=== PATIENT | male | born 1970 | race Caucasian/White ===

== ENCOUNTER 2021-12-22 12:51 | Inpatient (IN) ==
[2021-12-22] MEDS ORDERED: 0.9 % Sodium Chloride 1,000 ML IVC ONE (13:44)
[2021-12-22] MEDS ORDERED: Isovue-370 500 ML BOTTLE IVP ONE (13:45)
[2021-12-22] MEDS ORDERED: Cefepime HCl 2,000 MG in 0.9 % Sodium Chloride 10 ML IVP ONE (13:51)
[2021-12-22 14:26] LABS: INR 1.8; Prothrombin Time 19.7 Seconds (9.4-12.1)
[2021-12-22 14:28] LABS: Basophils % 0.1 %; Eosinophils % 0.2 %; Hematocrit 21.1 % (37.5-50.1); Hemoglobin 6.4 g/dL (12.9-16.9); Immature Granulocytes % 1.4 % (0-4); Lymphocytes # 0.8 K/mcL (0.6-4.6); Lymphocytes % 5.1 %; Mean Corpuscular HGB Conc 30.3 g/dL (31.6-35.5); Mean Corpuscular Hemoglobin 19.4 pg (28.0-33.3); Mean Corpuscular Volume 63.9 fL (83.0-100.0); Mean Platelet Volume 10.2 fL (9.4-12.4); Monocytes % 6.3 %; Platelet Count 203 K/mcL (140-400); Red Cell Distribution Width 18.4 % (11.5-14.5); Segmented Neutrophils % 86.9 %
[2021-12-22 14:39] LABS: Alanine Aminotransferase 7 Units/L (7-52); Albumin 2.9 g/dL (3.5-5.7); Albumin/Globulin Ratio 0.8 (1.1-2.2); Alkaline Phosphatase 113 Units/L (34-104); Aspartate Amino Transferase 18 Units/L (13-39); BUN/Creatinine Ratio 21 (6-26); Bilirubin,Direct 0.1 mg/dL (0.0-0.2); Bilirubin,Indirect 0.5 mg/dL (0.0-1.0); Bilirubin,Total 0.6 mg/dL (0.3-1.0); Blood Urea Nitrogen 16 mg/dL (6-20); Calcium 8.6 mg/dL (8.6-10.3); Carbon Dioxide 25 mEq/L (23-29); Chloride 99 mEq/L (98-107); Globulin 3.8 g/dL (2.4-3.5); Glucose 121 mg/dL (70-105); Osmolality,Calculated 278 (280-300); Potassium 3.4 mEq/L (3.5-5.1); Sodium 133 mEq/L (136-145); Total Protein 6.7 g/dL (6.4-8.9); eGFR For African Americans > 60 (> 60); eGFR For Non-African Americans > 60 (> 60)
[2021-12-22 14:51] LABS: Troponin I 1.46 ng/mL (< 0.04)
[2021-12-22] MEDS ORDERED: *HR* Heparin 5,000 UNIT/ML VIAL IVP ONE (14:51)
[2021-12-22] MEDS ORDERED: *HR* Heparin 5,000 UNIT/ML VIAL IVP PRN (14:51)
[2021-12-22 15:00] LABS: Large Platelets Present (Not Present); Platelet Estimate Normal (Normal)
[2021-12-22 15:01] LABS: Anisocytosis 1+ (Not Present); Microcytosis Present (Not Present)
[2021-12-22] MEDS: Heparin 25,000UNIT/250ML 1/2NS 25,000 UNIT/250 ML IV.SOLN IVC SCH (15:10)
[2021-12-22] MEDS ORDERED: Perflutren Lipid Microsphere 1.3 ML in 0.9 % Sodium Chloride 8.7 ML IVP PRN (17:06)
[2021-12-22] MEDS ORDERED: Ondansetron ODT 4 MG TAB.RAPDIS SL PRN (18:36)
[2021-12-22] MEDS ORDERED: Naloxone 0.4 MG/ML INJ IVP PRN (18:36)
[2021-12-22] MEDS ORDERED: levoFLOXacin 750 MG/150 ML 750 MG/150 ML BAG IVPB SCH (18:45)
[2021-12-22] MEDS ORDERED: Ringers Solution, Lactated 1,000 ML IVC SCH (18:45)
[2021-12-22] MEDS ORDERED: Vancomycin 1,250 MG/262.5 ML IV.SOLN IVPB SCH (19:00)
[2021-12-22] MEDS: Cefepime HCl 2,000 MG in 0.9 % Sodium Chloride 10 ML IVP SCH (20:47)
[2021-12-22] MEDS: Vancomycin 1,500 MG/265 ML IV.SOLN IVPB SCH (20:48)
[2021-12-22 21:34] LABS: Amphetamine Screen,Urine Positive ng/mL (Cutoff=1000); Barbiturate Screen,Urine Negative ng/mL (Cutoff=200); Benzodiazepines Screen,Urine Positive ng/mL (Cutoff=200); Cannabinoid Screen,Urine Negative ng/mL (Cutoff = 50); Cocaine Screen,Urine Negative ng/mL (Cutoff= 300); Opiate Screen,Urine Negative ng/mL (Cutoff=300); Phencyclidine Screen,Urine Negative ng/mL (Cutoff=25)
[2021-12-22] MEDS: levoFLOXacin 750 MG/150 ML 750 MG/150 ML BAG IVPB SCH (22:53)
[2021-12-22 23:36] LABS: Basophils % 0.1 %; Eosinophils % 0.2 %; Hematocrit 22.3 % (37.5-50.1); Hemoglobin 6.9 g/dL (12.9-16.9); Immature Granulocytes % 1.6 % (0-4); Lymphocytes # 0.7 K/mcL (0.6-4.6); Lymphocytes % 4.1 %; Mean Corpuscular HGB Conc 30.9 g/dL (31.6-35.5); Mean Corpuscular Hemoglobin 20.1 pg (28.0-33.3); Mean Corpuscular Volume 64.8 fL (83.0-100.0); Mean Platelet Volume 10.5 fL (9.4-12.4); Monocytes % 5.6 %; Platelet Count 203 K/mcL (140-400); Red Blood Count 3.44 M/mcL (4.19-5.50); Red Cell Distribution Width 19.8 % (11.5-14.5); Segmented Neutrophils % 88.4 %; White Blood Count 17.9 K/mcL (4.3-11.1)
[2021-12-22 23:46] LABS: Activated Partial Thrombo Time 31.9 Seconds (26.0-36.0)
[2021-12-22 23:49] LABS: Neutrophils # 15.8 K/mcL (1.6-8.9)
[2021-12-23 00:11] LABS: Heparin anti-factor XA UFH < 0.04 IU/mL (0.30-0.70)
[2021-12-23 00:20] LABS: Anisocytosis 1+ (Not Present); Hypochromasia Present (Not Present); Microcytosis Present (Not Present); Platelet Estimate Normal (Normal)
[2021-12-23] MEDS: *HR* Heparin 5,000 UNIT/ML VIAL IVP PRN ×2 (00:27→15:56)
[2021-12-23] MEDS ORDERED: 0.9 % Sodium Chloride 500 ML ONE (00:35)
[2021-12-23 01:10] LABS: Basophils % 0.1 %; Hemoglobin 6.7 g/dL (12.9-16.9); Mean Corpuscular Hemoglobin 19.8 pg (28.0-33.3); Monocytes % 4.8 %; Red Blood Count 3.39 M/mcL (4.19-5.50); Red Cell Distribution Width 19.9 % (11.5-14.5)
[2021-12-23 01:12] LABS: Eosinophils % 0.3 %; Hematocrit 22.1 % (37.5-50.1); Immature Granulocytes % 1.3 % (0-4); Immature Platelets 4.6 % (1.1-6.1); Lymphocytes # 0.7 K/mcL (0.6-4.6); Lymphocytes % 4.3 %; Mean Corpuscular HGB Conc 30.3 g/dL (31.6-35.5); Mean Corpuscular Volume 65.2 fL (83.0-100.0); Mean Platelet Volume 10.9 fL (9.4-12.4); Monocytes # 0.8 K/mcL (0.0-1.3); Platelet Count 189 K/mcL (140-400); Segmented Neutrophils % 89.2 %; White Blood Count 15.7 K/mcL (4.3-11.1)
[2021-12-23 01:15] LABS: Eosinophils # 0.1 K/mcL (0.0-0.6)
[2021-12-23 01:25] LABS: Alanine Aminotransferase 5 Units/L (7-52); Albumin 2.6 g/dL (3.5-5.7); Albumin/Globulin Ratio 0.7 (1.1-2.2); Alkaline Phosphatase 93 Units/L (34-104); Aspartate Amino Transferase 14 Units/L (13-39); BUN/Creatinine Ratio 18 (6-26); Bilirubin,Total 0.6 mg/dL (0.3-1.0); Blood Urea Nitrogen 13 mg/dL (6-20); Calcium 8.2 mg/dL (8.6-10.3); Carbon Dioxide 22 mEq/L (23-29); Chloride 103 mEq/L (98-107); Globulin 3.7 g/dL (2.4-3.5); Glucose 115 mg/dL (70-105); Osmolality,Calculated 279 (280-300); Potassium 3.1 mEq/L (3.5-5.1); Sodium 134 mEq/L (136-145); Total Protein 6.3 g/dL (6.4-8.9); eGFR For African Americans > 60 (> 60); eGFR For Non-African Americans > 60 (> 60)
[2021-12-23 01:56] LABS: Anisocytosis 1+ (Not Present); Hypochromasia Present (Not Present); Microcytosis Present (Not Present); Platelet Estimate Normal (Normal)
[2021-12-23] MEDS: *HR* LORazepam 2 MG/ML VIAL IVP PRN ×3 (03:39→20:44)
[2021-12-23] MEDS: Cefepime HCl 2,000 MG in 0.9 % Sodium Chloride 10 ML IVP SCH ×3 (06:20→22:43)
[2021-12-23] MEDS ORDERED: Potassium Chloride Elixir 20 MEQ/15 ML UDC PO ONE (08:23)
[2021-12-23] MEDS: Aspirin Enteric Coated 81 MG Tablet PO SCH (08:44)
[2021-12-23] MEDS: Heparin 25,000UNIT/250ML 1/2NS 25,000 UNIT/250 ML IV.SOLN IVC SCH ×2 (08:49→20:32)
[2021-12-23] MEDS: Vancomycin 1,500 MG/265 ML IV.SOLN IVPB SCH ×2 (10:14→19:50)
[2021-12-23 11:20] LABS: Hematocrit 24.8 % (37.5-50.1); Hemoglobin 7.7 g/dL (12.9-16.9)
[2021-12-23] MEDS: cloNIDine HCL 0.1 MG TABLET PO SCH ×4 (12:15→22:51)
[2021-12-23] MEDS: levoFLOXacin 750 MG/150 ML 750 MG/150 ML BAG IVPB SCH (20:45)
[2021-12-24] MEDS: *HR* Heparin 5,000 UNIT/ML VIAL IVP PRN ×2 (01:22→10:28)
[2021-12-24] MEDS: *HR* LORazepam 2 MG/ML VIAL IVP PRN ×2 (02:11→07:32)
[2021-12-24] MEDS ORDERED: *HR* LORazepam 2 MG/ML VIAL IVP ONE ×3 (04:32→11:24)
[2021-12-24] MEDS: Cefepime HCl 2,000 MG in 0.9 % Sodium Chloride 10 ML IVP SCH ×3 (05:34→20:58)
[2021-12-24] MEDS: Heparin 25,000UNIT/250ML 1/2NS 25,000 UNIT/250 ML IV.SOLN IVC SCH ×2 (07:59→18:39)
[2021-12-24 08:09] LABS: Hemoglobin 7.5 g/dL (12.9-16.9); Mean Corpuscular HGB Conc 31.3 g/dL (31.6-35.5); Mean Corpuscular Hemoglobin 20.8 pg (28.0-33.3); Mean Corpuscular Volume 66.7 fL (83.0-100.0); Mean Platelet Volume 10.9 fL (9.4-12.4); Platelet Count 255 K/mcL (140-400); Red Cell Distribution Width 21.1 % (11.5-14.5); White Blood Count 14.9 K/mcL (4.3-11.1)
[2021-12-24 08:28] LABS: ABG Base Excess 1 mEq/L (-2 to 3); ABG HCO3 23 mEq/L (21-27); ABG Oxygen Saturation 94 % (95-98); ABG PCO2 26 mmHg (35-45); ABG PH 7.55 pH Units (7.32-7.45); ABG PO2 59 mmHg (85-104); ABG TCO2 23 mEq/L (20-26)
[2021-12-24 08:30] LABS: BUN/Creatinine Ratio 13 (6-26); Blood Urea Nitrogen 9 mg/dL (6-20); Calcium 8.4 mg/dL (8.6-10.3); Carbon Dioxide 22 mEq/L (23-29); Chloride 106 mEq/L (98-107); Glucose 115 mg/dL (70-105); Iron 18 mcg/dL (65-175); Osmolality,Calculated 284 (280-300); Potassium 3.1 mEq/L (3.5-5.1); Sodium 137 mEq/L (136-145); eGFR For African Americans > 60 (> 60); eGFR For Non-African Americans > 60 (> 60)
[2021-12-24 08:48] LABS: Ferritin 161 ng/mL (20-250)
[2021-12-24] MEDS ORDERED: *HR* LORazepam 2 MG/ML VIAL IVP STA (09:15)
[2021-12-24 09:39] LABS: % Iron Saturation 8 % (20-55); Transferrin 160 mg/dL (203-362)
[2021-12-24] MEDS: Aspirin Enteric Coated 81 MG Tablet PO SCH (10:00)
[2021-12-24] MEDS: cloNIDine HCL 0.1 MG TABLET PO SCH (10:00)
[2021-12-24] MEDS ORDERED: Vancomycin 2,000 MG/520 ML IV.SOLN IVPB SCH ×2 (10:00→22:00)
[2021-12-24 10:19] LABS: Amphetamine Screen,Urine Negative ng/mL (Cutoff=1000); Barbiturate Screen,Urine Negative ng/mL (Cutoff=200); Benzodiazepines Screen,Urine Negative ng/mL (Cutoff=200); Cannabinoid Screen,Urine Negative ng/mL (Cutoff = 50); Cocaine Screen,Urine Negative ng/mL (Cutoff= 300); Opiate Screen,Urine Negative ng/mL (Cutoff=300); Phencyclidine Screen,Urine Negative ng/mL (Cutoff=25)
[2021-12-24] MEDS ORDERED: *HR* LORazepam 2 MG/ML VIAL IVP PRN (11:20)
[2021-12-24] MEDS ORDERED: *HR* Water for inj. (sterile) Vial 10 ML IV ONE (11:24)
[2021-12-24] MEDS ORDERED: *HR* Midazolam HCl 5 MG/5 ML VIAL IVP ONE (11:24)
[2021-12-24] MEDS ORDERED: *HR* Propofol 200 MG/20 ML VIAL IVP ONE (11:24)
[2021-12-24] MEDS ORDERED: *HR* Etomidate 20 MG/10 ML AMPUL IVP ONE (11:24)
[2021-12-24] MEDS ORDERED: Iron Sucrose Complex 200 MG in 0.9 % Sodium Chloride 100 ML IVPB ONE (11:32)
[2021-12-24] MEDS ORDERED: Furosemide 40 MG/4 ML VIAL IVP ONE (13:31)
[2021-12-24] MEDS: Dexmedetomidine HCl 400 MCG/100 ML MLS IVC SCH ×2 (14:11→20:37)
[2021-12-24] MEDS ORDERED: cloNIDine HCL 0.1 MG TABLET PO SCH (15:00)
[2021-12-24] MEDS ORDERED: Saline Nasal Spray 44 ML BOTTLE NS PRN (15:14)
[2021-12-24] MEDS ORDERED: Oxymetazoline Nasal SPRAY BOTTLE 15ML NS SCH (15:17)
[2021-12-24 16:53] LABS: ABG Base Excess 1 mEq/L (-2 to 3); ABG HCO3 23 mEq/L (21-27); ABG Oxygen Saturation 98 % (95-98); ABG PCO2 24 mmHg (35-45); ABG PH 7.58 pH Units (7.32-7.45); ABG PO2 91 mmHg (85-104); ABG TCO2 24 mEq/L (20-26); Blood Gas Modality BiLevel
[2021-12-24] MEDS: FentaNYL (PF) 1,000 MCG/100 ML IV.SOLN IVC SCH ×2 (17:31→21:01)
[2021-12-24] MEDS: Pantoprazole 40 MG VIAL IVP SCH (18:43)
[2021-12-24 18:48] LABS: ABG Base Excess 0 mEq/L (-2 to 3); ABG HCO3 23 mEq/L (21-27); ABG Oxygen Saturation 100 % (95-98); ABG PCO2 34 mmHg (35-45); ABG PH 7.45 pH Units (7.32-7.45); ABG PO2 170 mmHg (85-104); ABG TCO2 24 mEq/L (20-26); Blood Gas Modality ASSIST CONTROL; Blood Gas VT 500 cc
[2021-12-24] MEDS: Midazolam HCl 50 MG/50 ML IV.SOLN IVC SCH ×2 (19:11→20:54)
[2021-12-24] MEDS: Chlorhexidine Rinse 15 ML MOUTHWASH MM SCH (20:57)
[2021-12-24] MEDS: Artificial Tears SOLN 15 ML BOTTLE BOTH EYES SCH (20:57)
[2021-12-24] MEDS: levoFLOXacin 750 MG/150 ML 750 MG/150 ML BAG IVPB SCH (21:04)
[2021-12-24] MEDS: Norepinephrine 4 MG/254 ML IV.SOLN IVC SCH (21:06)
[2021-12-24] MEDS: Budesonide/Formoterol 160/4.5 1 PUFF INH IH SCH (21:33)
[2021-12-24] MEDS: Cisatracurium 200 MG in 0.9 % Sodium Chloride 80 ML IVC SCH (22:31)
[2021-12-25] MEDS: Artificial Tears SOLN 15 ML BOTTLE BOTH EYES SCH ×4 (00:10→12:12)
[2021-12-25] MEDS: Dexmedetomidine HCl 400 MCG/100 ML MLS IVC SCH ×2 (00:24→04:59)
[2021-12-25 00:39] LABS: ABG Base Excess -1 mEq/L (-2 to 3); ABG HCO3 27 mEq/L (21-27); ABG Oxygen Saturation 99 % (95-98); ABG PCO2 56 mmHg (35-45); ABG PH 7.29 pH Units (7.32-7.45); ABG PO2 165 mmHg (85-104); ABG TCO2 28 mEq/L (20-26); Blood Gas Modality AF; Blood Gas VT 500 cc
[2021-12-25] MEDS: Norepinephrine 4 MG/254 ML IV.SOLN IVC SCH ×5 (00:45→19:45)
[2021-12-25] MEDS: FentaNYL (PF) 1,000 MCG/100 ML IV.SOLN IVC SCH ×6 (00:47→23:17)
[2021-12-25] MEDS: Midazolam HCl 50 MG/50 ML IV.SOLN IVC SCH ×5 (01:42→23:21)
[2021-12-25 04:01] LABS: ABG Base Excess -2 mEq/L (-2 to 3); ABG HCO3 26 mEq/L (21-27); ABG Oxygen Saturation 96 % (95-98); ABG PCO2 61 mmHg (35-45); ABG PH 7.24 pH Units (7.32-7.45); ABG PO2 96 mmHg (85-104); ABG TCO2 28 mEq/L (20-26); Blood Gas Modality AF; Blood Gas VT 500 cc
[2021-12-25 04:12] LABS: Basophils # 0.1 K/mcL (0.0-0.2); Basophils % 0.3 %; Eosinophils # 0.4 K/mcL (0.0-0.6); Eosinophils % 1.9 %; Hematocrit 26.7 % (37.5-50.1); Hemoglobin 7.9 g/dL (12.9-16.9); Immature Granulocytes % 2.6 % (0-4); Lymphocytes # 1.8 K/mcL (0.6-4.6); Lymphocytes % 8.4 %; Mean Corpuscular HGB Conc 29.6 g/dL (31.6-35.5); Mean Corpuscular Hemoglobin 21.1 pg (28.0-33.3); Mean Corpuscular Volume 71.4 fL (83.0-100.0); Mean Platelet Volume 10.4 fL (9.4-12.4); Monocytes # 1.9 K/mcL (0.0-1.3); Neutrophils # 16.8 K/mcL (1.6-8.9); Platelet Count 323 K/mcL (140-400); Red Blood Count 3.74 M/mcL (4.19-5.50); Red Cell Distribution Width 21.6 % (11.5-14.5); Segmented Neutrophils % 77.8 %; White Blood Count 21.6 K/mcL (4.3-11.1)
[2021-12-25 04:21] LABS: VBG Ionized Calcium 1.17 mmol/L (1.15-1.35)
[2021-12-25 04:48] LABS: Alanine Aminotransferase 5 Units/L (7-52); Albumin 2.8 g/dL (3.5-5.7); Albumin/Globulin Ratio 0.7 (1.1-2.2); Alkaline Phosphatase 86 Units/L (34-104); Aspartate Amino Transferase 8 Units/L (13-39); BUN/Creatinine Ratio 13 (6-26); Bilirubin,Indirect 0.4 mg/dL (0.0-1.0); Bilirubin,Total 0.4 mg/dL (0.3-1.0); Blood Urea Nitrogen 14 mg/dL (6-20); Calcium 8.1 mg/dL (8.6-10.3); Carbon Dioxide 24 mEq/L (23-29); Chloride 107 mEq/L (98-107); Glucose 145 mg/dL (70-105); Magnesium 2.1 mg/dL (1.6-2.6); Osmolality,Calculated 295 (280-300); Phosphorous 6.2 mg/dL (2.7-4.5); Potassium 3.2 mEq/L (3.5-5.1); Sodium 141 mEq/L (136-145); Total Protein 6.8 g/dL (6.4-8.9); eGFR For African Americans > 60 (> 60); eGFR For Non-African Americans > 60 (> 60)
[2021-12-25] MEDS: Cefepime HCl 2,000 MG in 0.9 % Sodium Chloride 10 ML IVP SCH ×3 (05:01→21:21)
[2021-12-25] MEDS: Heparin 25,000UNIT/250ML 1/2NS 25,000 UNIT/250 ML IV.SOLN IVC SCH ×2 (05:31→20:03)
[2021-12-25] MEDS: Potassium Chloride 40 MEQ/200 ML BAG IVPB PRN ×2 (05:38→06:46)
[2021-12-25] MEDS: Budesonide/Formoterol 160/4.5 1 PUFF INH IH SCH ×2 (07:56→19:44)
[2021-12-25] MEDS: Pantoprazole 40 MG VIAL IVP SCH (08:55)
[2021-12-25] MEDS: Chlorhexidine Rinse 15 ML MOUTHWASH MM SCH ×2 (08:55→21:20)
[2021-12-25] MEDS: Aspirin Enteric Coated 81 MG Tablet PO SCH (08:55)
[2021-12-25] MEDS: Lacri-Lube 3.5 GM TUBE BOTH EYES SCH ×2 (12:10→21:00)
[2021-12-25] MEDS: Cisatracurium 200 MG in 0.9 % Sodium Chloride 80 ML IVC SCH (13:51)
[2021-12-25 14:27] LABS: Monocytes % 6.1 %
[2021-12-25 14:29] LABS: Basophils % 0.2 %; Eosinophils # 0.4 K/mcL (0.0-0.6); Eosinophils % 2.1 %; Hematocrit 27.7 % (37.5-50.1); Hemoglobin 8.2 g/dL (12.9-16.9); Immature Granulocytes % 1.8 % (0-4); Lymphocytes # 0.9 K/mcL (0.6-4.6); Lymphocytes % 4.7 %; Mean Corpuscular HGB Conc 29.6 g/dL (31.6-35.5); Mean Corpuscular Volume 70.8 fL (83.0-100.0); Mean Platelet Volume 9.9 fL (9.4-12.4); Monocytes # 1.2 K/mcL (0.0-1.3); Neutrophils # 16.3 K/mcL (1.6-8.9); Platelet Count 279 K/mcL (140-400); Red Blood Count 3.91 M/mcL (4.19-5.50); Red Cell Distribution Width 21.8 % (11.5-14.5); Segmented Neutrophils % 85.1 %; White Blood Count 19.2 K/mcL (4.3-11.1)
[2021-12-25 14:46] LABS: Alanine Aminotransferase 5 Units/L (7-52); Albumin 2.8 g/dL (3.5-5.7); Albumin/Globulin Ratio 0.7 (1.1-2.2); Alkaline Phosphatase 80 Units/L (34-104); Aspartate Amino Transferase 7 Units/L (13-39); BUN/Creatinine Ratio 15 (6-26); Bilirubin,Total 0.5 mg/dL (0.3-1.0); Blood Urea Nitrogen 20 mg/dL (6-20); Calcium 8.7 mg/dL (8.6-10.3); Carbon Dioxide 25 mEq/L (23-29); Chloride 108 mEq/L (98-107); Globulin 4.1 g/dL (2.4-3.5); Glucose 121 mg/dL (70-105); Osmolality,Calculated 296 (280-300); Potassium 3.8 mEq/L (3.5-5.1); Sodium 141 mEq/L (136-145); Total Protein 6.9 g/dL (6.4-8.9); eGFR For African Americans > 60 (> 60); eGFR For Non-African Americans 56 (> 60)
[2021-12-25 19:04] LABS: Bacteria,Urine Moderate per hpf (None-Few); Bilirubin,Urine Negative (Negative); Blood,Urine Moderate (Negative); Clarity,Urine Ex.Turbid (Clear); Color,Urine Yellow (Yellow); Glucose,Urine (UA) Normal (Normal); Hyaline Casts,Urine Many per lpf (None Seen); Ketones,Urine Negative (Negative); Leukocyte Esterase,Urine Small (Negative); Mucus,Urine Few per lpf (None-Few); Nitrite,Urine Negative (Negative); PH,Urine 5.5 pH Units (5.0-8.0); Protein,Urine 100 mg/dL (Neg-Trace); RBC,Urine 15-30 per hpf (0-3); Squamous Epithelial Cell,Urine Few per hpf (None-Few); Urobilinogen,Urine Normal (Normal); WBC,Urine 15-30 per hpf (0-3)
[2021-12-25 20:35] LABS: HIV-1&2 Antibody & p24 Ag Nonreactive (Nonreactive)
[2021-12-25] MEDS: levoFLOXacin 750 MG/150 ML 750 MG/150 ML BAG IVPB SCH (21:22)
[2021-12-25 23:51] LABS: ABG Base Excess -4 mEq/L (-2 to 3); ABG HCO3 23 mEq/L (21-27); ABG Oxygen Saturation 95 % (95-98); ABG PCO2 51 mmHg (35-45); ABG PH 7.26 pH Units (7.32-7.45); ABG PO2 87 mmHg (85-104); ABG TCO2 25 mEq/L (20-26); Blood Gas Modality ASSIST CONTROL; Blood Gas VT 500 cc
[2021-12-26 01:55] LABS: Hepatitis C Virus Antibody Reactive (Nonreactive)
[2021-12-26] MEDS: FentaNYL (PF) 1,000 MCG/100 ML IV.SOLN IVC SCH ×5 (03:52→22:33)
[2021-12-26] MEDS: Midazolam HCl 50 MG/50 ML IV.SOLN IVC SCH ×4 (04:08→21:05)
[2021-12-26 04:17] LABS: ABG Base Excess -4 mEq/L (-2 to 3); ABG HCO3 22 mEq/L (21-27); ABG Oxygen Saturation 97 % (95-98); ABG PCO2 47 mmHg (35-45); ABG PH 7.29 pH Units (7.32-7.45); ABG PO2 106 mmHg (85-104); ABG TCO2 24 mEq/L (20-26); Blood Gas Modality ASSIST CONTROL; Blood Gas VT 500 cc
[2021-12-26] MEDS: Heparin 25,000UNIT/250ML 1/2NS 25,000 UNIT/250 ML IV.SOLN IVC SCH ×2 (05:06→15:01)
[2021-12-26 05:18] LABS: Basophils % 0.1 %; Eosinophils % 1.9 %; Platelet Count 248 K/mcL (140-400)
[2021-12-26 05:18] LABS: VBG Ionized Calcium 1.22 mmol/L (1.15-1.35)
[2021-12-26 05:19] LABS: Eosinophils # 0.3 K/mcL (0.0-0.6); Hematocrit 27.9 % (37.5-50.1); Hemoglobin 8.1 g/dL (12.9-16.9); Immature Granulocytes % 1.5 % (0-4); Lymphocytes # 0.6 K/mcL (0.6-4.6); Lymphocytes % 3.8 %; Mean Corpuscular Hemoglobin 21.1 pg (28.0-33.3); Mean Corpuscular Volume 72.7 fL (83.0-100.0); Mean Platelet Volume 10.5 fL (9.4-12.4); Monocytes # 0.7 K/mcL (0.0-1.3); Monocytes % 4.7 %; Red Blood Count 3.84 M/mcL (4.19-5.50); Red Cell Distribution Width 22.5 % (11.5-14.5); White Blood Count 14.6 K/mcL (4.3-11.1)
[2021-12-26 05:23] LABS: Neutrophils # 12.9 K/mcL (1.6-8.9)
[2021-12-26 05:36] LABS: Alanine Aminotransferase 6 Units/L (7-52); Albumin 2.7 g/dL (3.5-5.7); Albumin/Globulin Ratio 0.7 (1.1-2.2); Alkaline Phosphatase 81 Units/L (34-104); Aspartate Amino Transferase 8 Units/L (13-39); BUN/Creatinine Ratio 17 (6-26); Bilirubin,Direct 0.1 mg/dL (0.0-0.2); Bilirubin,Indirect 0.3 mg/dL (0.0-1.0); Bilirubin,Total 0.4 mg/dL (0.3-1.0); Blood Urea Nitrogen 19 mg/dL (6-20); Calcium 8.7 mg/dL (8.6-10.3); Carbon Dioxide 22 mEq/L (23-29); Chloride 108 mEq/L (98-107); Globulin 4.1 g/dL (2.4-3.5); Glucose 107 mg/dL (70-105); Magnesium 2.1 mg/dL (1.6-2.6); Osmolality,Calculated 291 (280-300); Phosphorous 5.3 mg/dL (2.7-4.5); Sodium 139 mEq/L (136-145); Total Protein 6.8 g/dL (6.4-8.9); eGFR For African Americans > 60 (> 60); eGFR For Non-African Americans > 60 (> 60)
[2021-12-26] MEDS: Cefepime HCl 2,000 MG in 0.9 % Sodium Chloride 10 ML IVP SCH ×3 (05:42→21:38)
[2021-12-26 05:44] LABS: INR 1.3
[2021-12-26 05:51] LABS: Activated Partial Thrombo Time 71.9 Seconds (26.0-36.0)
[2021-12-26] MEDS: Budesonide/Formoterol 160/4.5 1 PUFF INH IH SCH ×2 (07:46→19:42)
[2021-12-26] MEDS: Chlorhexidine Rinse 15 ML MOUTHWASH MM SCH ×2 (08:42→21:06)
[2021-12-26] MEDS: Pantoprazole 40 MG VIAL IVP SCH (08:42)
[2021-12-26] MEDS: Lacri-Lube 3.5 GM TUBE BOTH EYES SCH ×2 (08:42→21:08)
[2021-12-26] MEDS: Aspirin Enteric Coated 81 MG Tablet PO SCH (08:42)
[2021-12-26] MEDS: Aspirin 81 MG TAB.CHEW PO SCH (12:14)
[2021-12-26] MEDS: Cisatracurium 200 MG in 0.9 % Sodium Chloride 80 ML IVC SCH (20:31)
[2021-12-26] MEDS: levoFLOXacin 750 MG/150 ML 750 MG/150 ML BAG IVPB SCH (21:06)
[2021-12-26] MEDS: Artificial Tears SOLN 15 ML BOTTLE BOTH EYES PRN (21:08)
[2021-12-27] MEDS: Heparin 25,000UNIT/250ML 1/2NS 25,000 UNIT/250 ML IV.SOLN IVC SCH ×3 (00:27→18:26)
[2021-12-27] MEDS: Midazolam HCl 50 MG/50 ML IV.SOLN IVC SCH ×6 (01:07→23:26)
[2021-12-27] MEDS: FentaNYL (PF) 1,000 MCG/100 ML IV.SOLN IVC SCH ×5 (03:15→21:11)
[2021-12-27 03:39] LABS: ABG Base Excess -4 mEq/L (-2 to 3); ABG HCO3 22 mEq/L (21-27); ABG Oxygen Saturation 100 % (95-98); ABG PCO2 43 mmHg (35-45); ABG PH 7.32 pH Units (7.32-7.45); ABG PO2 180 mmHg (85-104); ABG TCO2 23 mEq/L (20-26); Blood Gas VT 500 cc
[2021-12-27 03:40] LABS: Eosinophils % 2.4 %; Monocytes % 5.3 %
[2021-12-27 03:40] LABS: VBG Ionized Calcium 1.22 mmol/L (1.15-1.35)
[2021-12-27 03:41] LABS: Basophils % 0.2 %; Eosinophils # 0.4 K/mcL (0.0-0.6); Hematocrit 26.7 % (37.5-50.1); Hemoglobin 7.5 g/dL (12.9-16.9); Immature Granulocytes % 1.5 % (0-4); Lymphocytes # 0.7 K/mcL (0.6-4.6); Lymphocytes % 4.9 %; Mean Corpuscular HGB Conc 28.1 g/dL (31.6-35.5); Mean Corpuscular Hemoglobin 20.3 pg (28.0-33.3); Mean Corpuscular Volume 72.4 fL (83.0-100.0); Monocytes # 0.8 K/mcL (0.0-1.3); Platelet Count 286 K/mcL (140-400); Red Blood Count 3.69 M/mcL (4.19-5.50); Red Cell Distribution Width 22.9 % (11.5-14.5); Segmented Neutrophils % 85.7 %
[2021-12-27 03:43] LABS: Neutrophils # 12.9 K/mcL (1.6-8.9)
[2021-12-27 03:58] LABS: Alanine Aminotransferase 5 Units/L (7-52); Albumin 2.8 g/dL (3.5-5.7); Albumin/Globulin Ratio 0.7 (1.1-2.2); Alkaline Phosphatase 77 Units/L (34-104); Aspartate Amino Transferase 9 Units/L (13-39); BUN/Creatinine Ratio 17 (6-26); Bilirubin,Direct 0.1 mg/dL (0.0-0.2); Bilirubin,Indirect 0.3 mg/dL (0.0-1.0); Bilirubin,Total 0.4 mg/dL (0.3-1.0); Blood Urea Nitrogen 23 mg/dL (6-20); Calcium 8.8 mg/dL (8.6-10.3); Carbon Dioxide 21 mEq/L (23-29); Chloride 109 mEq/L (98-107); Globulin 4.2 g/dL (2.4-3.5); Glucose 106 mg/dL (70-105); Magnesium 2.2 mg/dL (1.6-2.6); Osmolality,Calculated 292 (280-300); Potassium 3.9 mEq/L (3.5-5.1); Sodium 139 mEq/L (136-145); eGFR For African Americans > 60 (> 60); eGFR For Non-African Americans 56 (> 60)
[2021-12-27 04:30] LABS: Hypochromasia Present (Not Present)
[2021-12-27 04:31] LABS: Anisocytosis 3+ (Not Present); Platelet Estimate Normal (Normal)
[2021-12-27] MEDS: Potassium Chloride 40 MEQ/200 ML BAG IVPB PRN (05:14)
[2021-12-27] MEDS: Cefepime HCl 2,000 MG in 0.9 % Sodium Chloride 10 ML IVP SCH ×3 (06:06→20:56)
[2021-12-27] MEDS: Budesonide/Formoterol 160/4.5 1 PUFF INH IH SCH ×2 (07:13→19:31)
[2021-12-27] MEDS ORDERED: Furosemide 40 MG/4 ML VIAL IVP ONE (08:37)
[2021-12-27] MEDS: Pantoprazole 40 MG VIAL IVP SCH (08:51)
[2021-12-27] MEDS: Lacri-Lube 3.5 GM TUBE BOTH EYES SCH ×2 (08:52→20:59)
[2021-12-27] MEDS: Chlorhexidine Rinse 15 ML MOUTHWASH MM SCH ×2 (08:52→20:56)
[2021-12-27] MEDS: Aspirin 81 MG TAB.CHEW PO SCH (08:52)
[2021-12-27] MEDS: Artificial Tears SOLN 15 ML BOTTLE BOTH EYES PRN (16:03)
[2021-12-27 17:00] LABS: VBG Ionized Calcium 1.29 mmol/L (1.15-1.35)
[2021-12-27 17:08] LABS: Calcium 9.1 mg/dL (8.6-10.3); Magnesium 2.3 mg/dL (1.6-2.6); Phosphorous 5.8 mg/dL (2.7-4.5); Potassium 4.6 mEq/L (3.5-5.1)
[2021-12-27] MEDS: Cisatracurium 200 MG in 0.9 % Sodium Chloride 80 ML IVC SCH (20:31)
[2021-12-27] MEDS: levoFLOXacin 750 MG/150 ML 750 MG/150 ML BAG IVPB SCH (20:56)
[2021-12-28] MEDS: FentaNYL (PF) 1,000 MCG/100 ML IV.SOLN IVC SCH ×5 (02:00→20:52)
[2021-12-28] MEDS: Midazolam HCl 50 MG/50 ML IV.SOLN IVC SCH ×2 (03:00→06:51)
[2021-12-28 03:36] LABS: Hemoglobin 7.3 g/dL (12.9-16.9); Mean Corpuscular Hemoglobin 20.9 pg (28.0-33.3); Red Cell Distribution Width 23.3 % (11.5-14.5); Segmented Neutrophils % 83.9 %
[2021-12-28 03:38] LABS: Basophils % 0.3 %; Eosinophils # 0.2 K/mcL (0.0-0.6); Eosinophils % 1.7 %; Hematocrit 25.4 % (37.5-50.1); Immature Granulocytes % 2.2 % (0-4); Lymphocytes # 0.9 K/mcL (0.6-4.6); Lymphocytes % 6.2 %; Mean Corpuscular HGB Conc 28.7 g/dL (31.6-35.5); Mean Corpuscular Volume 72.6 fL (83.0-100.0); Mean Platelet Volume 10.2 fL (9.4-12.4); Monocytes # 0.8 K/mcL (0.0-1.3); Monocytes % 5.7 %; Neutrophils # 11.8 K/mcL (1.6-8.9); Platelet Count 314 K/mcL (140-400); White Blood Count 14.1 K/mcL (4.3-11.1)
[2021-12-28 03:54] LABS: VBG Ionized Calcium 1.29 mmol/L (1.15-1.35)
[2021-12-28 03:56] LABS: Albumin 2.8 g/dL (3.5-5.7); Albumin/Globulin Ratio 0.7 (1.1-2.2); Bilirubin,Direct 0.1 mg/dL (0.0-0.2); Bilirubin,Indirect 0.3 mg/dL (0.0-1.0); Bilirubin,Total 0.4 mg/dL (0.3-1.0); Calcium 9.1 mg/dL (8.6-10.3); Globulin 4.2 g/dL (2.4-3.5); Magnesium 2.3 mg/dL (1.6-2.6); Phosphorous 5.5 mg/dL (2.7-4.5); Potassium 4.5 mEq/L (3.5-5.1)
[2021-12-28] MEDS: Heparin 25,000UNIT/250ML 1/2NS 25,000 UNIT/250 ML IV.SOLN IVC SCH ×2 (03:56→18:50)
[2021-12-28 03:58] LABS: Anisocytosis 3+ (Not Present); Hypochromasia Present (Not Present); Microcytosis Present (Not Present); Platelet Estimate Normal (Normal); Poikilocytosis 1+ (Not Present)
[2021-12-28 04:10] LABS: ABG Base Excess -6 mEq/L (-2 to 3); ABG HCO3 20 mEq/L (21-27); ABG Oxygen Saturation 99 % (95-98); ABG PCO2 42 mmHg (35-45); ABG PO2 167 mmHg (85-104); ABG TCO2 22 mEq/L (20-26); Blood Gas Modality ASSIST CONTROL; Blood Gas VT 500 cc
[2021-12-28] MEDS: Cefepime HCl 2,000 MG in 0.9 % Sodium Chloride 10 ML IVP SCH ×3 (04:46→20:51)
[2021-12-28] MEDS: Budesonide/Formoterol 160/4.5 1 PUFF INH IH SCH ×2 (07:55→21:29)
[2021-12-28] MEDS: Pantoprazole 40 MG VIAL IVP SCH ×2 (08:17→18:05)
[2021-12-28] MEDS: Chlorhexidine Rinse 15 ML MOUTHWASH MM SCH ×2 (08:17→19:52)
[2021-12-28] MEDS: Norepinephrine 4 MG/254 ML IV.SOLN IVC SCH ×2 (08:17→19:40)
[2021-12-28] MEDS: Aspirin 81 MG TAB.CHEW PO SCH (08:18)
[2021-12-28] MEDS: Lacri-Lube 3.5 GM TUBE BOTH EYES SCH ×2 (08:18→19:52)
[2021-12-28] MEDS: Dexmedetomidine HCl 400 MCG/100 ML MLS IVC SCH ×2 (08:21→13:00)
[2021-12-28 09:43] LABS: Basophils % 0.2 %; Eosinophils # 0.3 K/mcL (0.0-0.6); Hematocrit 24.8 % (37.5-50.1); Hemoglobin 7.2 g/dL (12.9-16.9); Immature Granulocytes % 1.9 % (0-4); Lymphocytes # 0.8 K/mcL (0.6-4.6); Lymphocytes % 6.6 %; Mean Corpuscular Hemoglobin 21.2 pg (28.0-33.3); Mean Corpuscular Volume 72.9 fL (83.0-100.0); Mean Platelet Volume 10.3 fL (9.4-12.4); Monocytes # 0.8 K/mcL (0.0-1.3); Monocytes % 6.7 %; Neutrophils # 10.2 K/mcL (1.6-8.9); Platelet Count 301 K/mcL (140-400); Red Cell Distribution Width 23.5 % (11.5-14.5); Segmented Neutrophils % 82.6 %; White Blood Count 12.3 K/mcL (4.3-11.1)
[2021-12-28 11:17] LABS: Anisocytosis 1+ (Not Present); Hypochromasia Present (Not Present); Platelet Estimate Normal (Normal)
[2021-12-28 11:19] LABS: Poikilocytosis 1+ (Not Present)
[2021-12-28] MEDS: Artificial Tears SOLN 15 ML BOTTLE BOTH EYES PRN (11:54)
[2021-12-28 14:57] LABS: Mean Corpuscular Volume 72.6 fL (83.0-100.0)
[2021-12-28 14:58] LABS: Eosinophils # 0.3 K/mcL (0.0-0.6); Hematocrit 24.4 % (37.5-50.1); Hemoglobin 7.1 g/dL (12.9-16.9); Mean Corpuscular HGB Conc 29.1 g/dL (31.6-35.5); Mean Corpuscular Hemoglobin 21.1 pg (28.0-33.3); Platelet Count 285 K/mcL (140-400); Red Blood Count 3.36 M/mcL (4.19-5.50); Red Cell Distribution Width 23.7 % (11.5-14.5); White Blood Count 12.5 K/mcL (4.3-11.1)
[2021-12-28 15:37] LABS: Anisocytosis 2+ (Not Present); Lymphocytes # 0.5 K/mcL (0.6-4.6); Monocytes # 0.3 K/mcL (0.0-1.3); Neutrophils # 11.5 K/mcL (1.6-8.9); Platelet Estimate Normal (Normal)
[2021-12-28 15:38] LABS: Poikilocytosis 1+ (Not Present)
[2021-12-28] MEDS: Cisatracurium 200 MG in 0.9 % Sodium Chloride 80 ML IVC SCH (19:40)
[2021-12-28] MEDS: levoFLOXacin 750 MG/150 ML 750 MG/150 ML BAG IVPB SCH (19:52)
[2021-12-28 20:20] LABS: Hematocrit 25.2 % (37.5-50.1); Hemoglobin 7.1 g/dL (12.9-16.9)
[2021-12-29] MEDS: FentaNYL (PF) 1,000 MCG/100 ML IV.SOLN IVC SCH ×6 (00:53→21:13)
[2021-12-29 03:19] LABS: VBG Ionized Calcium 1.28 mmol/L (1.15-1.35)
[2021-12-29 03:23] LABS: Segmented Neutrophils % 83.3 %
[2021-12-29 03:25] LABS: Basophils % 0.2 %; Eosinophils # 0.2 K/mcL (0.0-0.6); Eosinophils % 1.8 %; Hematocrit 24.9 % (37.5-50.1); Immature Granulocytes % 2.3 % (0-4); Lymphocytes # 0.9 K/mcL (0.6-4.6); Lymphocytes % 6.9 %; Mean Corpuscular HGB Conc 28.1 g/dL (31.6-35.5); Mean Corpuscular Hemoglobin 20.8 pg (28.0-33.3); Mean Corpuscular Volume 73.9 fL (83.0-100.0); Mean Platelet Volume 10.5 fL (9.4-12.4); Monocytes # 0.7 K/mcL (0.0-1.3); Monocytes % 5.5 %; Platelet Count 292 K/mcL (140-400); Red Blood Count 3.37 M/mcL (4.19-5.50); Red Cell Distribution Width 23.9 % (11.5-14.5); White Blood Count 12.4 K/mcL (4.3-11.1)
[2021-12-29 03:28] LABS: Neutrophils # 10.3 K/mcL (1.6-8.9)
[2021-12-29 03:52] LABS: Albumin 2.8 g/dL (3.5-5.7); Albumin/Globulin Ratio 0.6 (1.1-2.2); Bilirubin,Direct 0.1 mg/dL (0.0-0.2); Bilirubin,Indirect 0.3 mg/dL (0.0-1.0); Bilirubin,Total 0.4 mg/dL (0.3-1.0); Globulin 4.4 g/dL (2.4-3.5); Magnesium 2.4 mg/dL (1.6-2.6); Phosphorous 5.7 mg/dL (2.7-4.5); Potassium 4.4 mEq/L (3.5-5.1); Total Protein 7.2 g/dL (6.4-8.9)
[2021-12-29 03:55] LABS: Anisocytosis 3+ (Not Present); Hypochromasia Present (Not Present); Platelet Estimate Normal (Normal)
[2021-12-29] MEDS: Heparin 25,000UNIT/250ML 1/2NS 25,000 UNIT/250 ML IV.SOLN IVC SCH ×3 (04:04→21:13)
[2021-12-29 05:09] LABS: ABG Base Excess -8 mEq/L (-2 to 3); ABG HCO3 18 mEq/L (21-27); ABG Oxygen Saturation 99 % (95-98); ABG PCO2 37 mmHg (35-45); ABG PO2 147 mmHg (85-104); ABG TCO2 19 mEq/L (20-26); Blood Gas Modality AF; Blood Gas VT 500 cc
[2021-12-29] MEDS: Cefepime HCl 2,000 MG in 0.9 % Sodium Chloride 10 ML IVP SCH ×3 (05:09→21:13)
[2021-12-29] MEDS: Pantoprazole 40 MG VIAL IVP SCH ×2 (05:10→17:19)
[2021-12-29] MEDS: Dexmedetomidine HCl 400 MCG/100 ML MLS IVC SCH ×3 (05:14→23:38)
[2021-12-29] MEDS: Lacri-Lube 3.5 GM TUBE BOTH EYES SCH ×2 (07:29→19:44)
[2021-12-29] MEDS: Chlorhexidine Rinse 15 ML MOUTHWASH MM SCH ×2 (07:29→19:43)
[2021-12-29] MEDS: Budesonide/Formoterol 160/4.5 1 PUFF INH IH SCH ×2 (07:42→21:26)
[2021-12-29] MEDS ORDERED: *HR* LORazepam 2 MG/ML VIAL IVP ONE (08:50)
[2021-12-29] MEDS: Albumin Human 5% 12.5 GM/250 ML IV.SOLN IVC SCH ×2 (09:01→13:29)
[2021-12-29] MEDS: Norepinephrine 4 MG/254 ML IV.SOLN IVC SCH (09:59)
[2021-12-29] MEDS: Cisatracurium 200 MG in 0.9 % Sodium Chloride 80 ML IVC SCH (17:35)
[2021-12-29] MEDS: levoFLOXacin 750 MG/150 ML 750 MG/150 ML BAG IVPB SCH (19:43)
[2021-12-30] MEDS: FentaNYL (PF) 1,000 MCG/100 ML IV.SOLN IVC SCH ×6 (01:14→21:20)
[2021-12-30 02:21] LABS: Hemoglobin 6.4 g/dL (12.9-16.9); Monocytes % 5.5 %
[2021-12-30 02:22] LABS: VBG Ionized Calcium 1.29 mmol/L (1.15-1.35)
[2021-12-30 02:23] LABS: Basophils % 0.3 %; Eosinophils # 0.2 K/mcL (0.0-0.6); Eosinophils % 1.7 %; Hematocrit 22.2 % (37.5-50.1); Lymphocytes % 4.5 %; Mean Corpuscular HGB Conc 28.8 g/dL (31.6-35.5); Mean Corpuscular Hemoglobin 20.9 pg (28.0-33.3); Mean Corpuscular Volume 72.5 fL (83.0-100.0); Mean Platelet Volume 9.7 fL (9.4-12.4); Monocytes # 0.7 K/mcL (0.0-1.3); Neutrophils # 10.4 K/mcL (1.6-8.9); Platelet Count 245 K/mcL (140-400); Red Blood Count 3.06 M/mcL (4.19-5.50); Red Cell Distribution Width 23.9 % (11.5-14.5); White Blood Count 12.1 K/mcL (4.3-11.1)
[2021-12-30 02:46] LABS: Lymphocytes # 0.5 K/mcL (0.6-4.6)
[2021-12-30 03:15] LABS: Anisocytosis 2+ (Not Present); Hypochromasia Present (Not Present); Platelet Estimate Normal (Normal)
[2021-12-30] MEDS: Norepinephrine 4 MG/254 ML IV.SOLN IVC SCH ×2 (03:25→15:29)
[2021-12-30] MEDS: Dexmedetomidine HCl 400 MCG/100 ML MLS IVC SCH ×6 (03:29→22:16)
[2021-12-30 03:30] LABS: Albumin 2.9 g/dL (3.5-5.7); Albumin/Globulin Ratio 0.7 (1.1-2.2); Bilirubin,Direct 0.1 mg/dL (0.0-0.2); Bilirubin,Indirect 0.3 mg/dL (0.0-1.0); Bilirubin,Total 0.4 mg/dL (0.3-1.0); Calcium 9.1 mg/dL (8.6-10.3); Globulin 4.1 g/dL (2.4-3.5); Magnesium 2.4 mg/dL (1.6-2.6); Phosphorous 4.6 mg/dL (2.7-4.5); Potassium 4.1 mEq/L (3.5-5.1)
[2021-12-30 04:15] LABS: ABG Base Excess -8 mEq/L (-2 to 3); ABG HCO3 18 mEq/L (21-27); ABG Oxygen Saturation 99 % (95-98); ABG PCO2 34 mmHg (35-45); ABG PH 7.32 pH Units (7.32-7.45); ABG PO2 134 mmHg (85-104); ABG TCO2 19 mEq/L (20-26); Blood Gas Modality AF; Blood Gas VT 500 cc
[2021-12-30] MEDS ORDERED: 0.9 % Sodium Chloride 250 ML ONE (04:38)
[2021-12-30] MEDS: Pantoprazole 40 MG VIAL IVP SCH ×2 (04:48→16:42)
[2021-12-30] MEDS: Cefepime HCl 2,000 MG in 0.9 % Sodium Chloride 10 ML IVP SCH ×3 (04:48→16:42)
[2021-12-30] MEDS: Heparin 25,000UNIT/250ML 1/2NS 25,000 UNIT/250 ML IV.SOLN IVC SCH ×3 (04:53→21:30)
[2021-12-30] MEDS: Budesonide/Formoterol 160/4.5 1 PUFF INH IH SCH ×2 (07:07→20:05)
[2021-12-30] MEDS: Chlorhexidine Rinse 15 ML MOUTHWASH MM SCH ×2 (07:39→19:39)
[2021-12-30] MEDS ORDERED: MethylPREDNISolone 40 MG/ML VIAL IVP ONE (08:46)
[2021-12-30] MEDS ORDERED: *HR* Midazolam HCl 5 MG/5 ML VIAL IVP ONE (09:04)
[2021-12-30] MEDS: Lacri-Lube 3.5 GM TUBE BOTH EYES SCH ×2 (09:13→19:38)
[2021-12-30 09:22] LABS: Hemoglobin 8.4 g/dL (12.9-16.9)
[2021-12-30] MEDS ORDERED: Ipratropium/Albuterol Neb 3 ML ONE (10:02)
[2021-12-30] MEDS: Ipratropium/Albuterol Neb 3 ML IH SCH ×3 (10:05→20:05)
[2021-12-30] MEDS ORDERED: Ipratropium/Albuterol Neb 3 ML IH SCH (12:00)
[2021-12-30] MEDS: levoFLOXacin 750 MG/150 ML 750 MG/150 ML BAG IVPB SCH (19:37)
[2021-12-30] MEDS: Cisatracurium 200 MG in 0.9 % Sodium Chloride 80 ML IVC SCH (19:39)
[2021-12-31] MEDS: Ipratropium/Albuterol Neb 3 ML IH SCH ×7 (00:25→23:20)
[2021-12-31] MEDS: Dexmedetomidine HCl 400 MCG/100 ML MLS IVC SCH ×7 (02:19→23:35)
[2021-12-31] MEDS: FentaNYL (PF) 1,000 MCG/100 ML IV.SOLN IVC SCH ×2 (02:22→06:03)
[2021-12-31 03:49] LABS: Basophils # 0.1 K/mcL (0.0-0.2); Basophils % 0.4 %; Eosinophils # 0.1 K/mcL (0.0-0.6); Hematocrit 25.1 % (37.5-50.1); Hemoglobin 7.3 g/dL (12.9-16.9); Immature Granulocytes % 4.9 % (0-4); Lymphocytes # 0.8 K/mcL (0.6-4.6); Lymphocytes % 6.1 %; Mean Corpuscular HGB Conc 29.1 g/dL (31.6-35.5); Mean Corpuscular Hemoglobin 21.7 pg (28.0-33.3); Mean Corpuscular Volume 74.7 fL (83.0-100.0); Monocytes # 0.8 K/mcL (0.0-1.3); Monocytes % 6.1 %; Neutrophils # 10.5 K/mcL (1.6-8.9); Platelet Count 255 K/mcL (140-400); Red Blood Count 3.36 M/mcL (4.19-5.50); Red Cell Distribution Width 23.9 % (11.5-14.5); Segmented Neutrophils % 81.5 %; White Blood Count 12.9 K/mcL (4.3-11.1)
[2021-12-31 03:55] LABS: VBG Ionized Calcium 1.33 mmol/L (1.15-1.35)
[2021-12-31 04:07] LABS: Albumin/Globulin Ratio 0.7 (1.1-2.2); Bilirubin,Direct 0.1 mg/dL (0.0-0.2); Bilirubin,Indirect 0.2 mg/dL (0.0-1.0); Bilirubin,Total 0.3 mg/dL (0.3-1.0); Calcium 9.3 mg/dL (8.6-10.3); Globulin 4.1 g/dL (2.4-3.5); Magnesium 2.4 mg/dL (1.6-2.6); Potassium 4.6 mEq/L (3.5-5.1); Total Protein 7.1 g/dL (6.4-8.9)
[2021-12-31 04:31] LABS: ABG Base Excess -9 mEq/L (-2 to 3); ABG HCO3 18 mEq/L (21-27); ABG Oxygen Saturation 96 % (95-98); ABG PCO2 43 mmHg (35-45); ABG PH 7.24 pH Units (7.32-7.45); ABG PO2 93 mmHg (85-104); ABG TCO2 20 mEq/L (20-26); Blood Gas Modality ASSIST CONTROL; Blood Gas VT 500 cc
[2021-12-31 04:36] LABS: Heparin anti-factor XA UFH 0.52 IU/mL (0.30-0.70)
[2021-12-31 04:37] LABS: INR 1.1
[2021-12-31 04:39] LABS: Activated Partial Thrombo Time 91.5 Seconds (26.0-36.0)
[2021-12-31 05:06] LABS: Anisocytosis 2+ (Not Present); Ovalocytes 1+ (Not Present); Platelet Estimate Normal (Normal); Poikilocytosis 1+ (Not Present)
[2021-12-31] MEDS: Pantoprazole 40 MG VIAL IVP SCH ×2 (05:55→17:13)
[2021-12-31] MEDS: Heparin 25,000UNIT/250ML 1/2NS 25,000 UNIT/250 ML IV.SOLN IVC SCH ×2 (05:55→16:35)
[2021-12-31] MEDS: Cefepime HCl 2,000 MG in 0.9 % Sodium Chloride 10 ML IVP SCH ×2 (05:55→16:16)
[2021-12-31] MEDS: Chlorhexidine Rinse 15 ML MOUTHWASH MM SCH ×2 (07:29→19:59)
[2021-12-31] MEDS: Norepinephrine 4 MG/254 ML IV.SOLN IVC SCH (07:30)
[2021-12-31] MEDS: Lacri-Lube 3.5 GM TUBE BOTH EYES SCH ×2 (07:30→19:59)
[2021-12-31] MEDS: Budesonide/Formoterol 160/4.5 1 PUFF INH IH SCH ×2 (07:36→19:41)
[2021-12-31] MEDS ORDERED: Perflutren Lipid Microsphere 1.3 ML in 0.9 % Sodium Chloride 8.7 ML IVP PRN (07:49)
[2021-12-31] MEDS: Sodium Bicarbonate 75 MEQ in D5% in Water 1,000 ML IVC SCH ×2 (08:53→17:13)
[2021-12-31] MEDS: Nystatin POWDER 30 GM BOTTLE TP SCH ×2 (09:12→19:59)
[2021-12-31] MEDS: FentaNYL (PF) 2,500 MCG/50 ML IV.SOLN IVC SCH ×2 (09:45→16:00)
[2021-12-31] MEDS: Haloperidol Lactate 5 MG/ML VIAL IVP SCH ×2 (10:14→17:13)
[2021-12-31] MEDS ORDERED: Haloperidol Lactate 5 MG/ML VIAL IVP SCH (12:00)
[2021-12-31 12:39] LABS: Hematocrit 26.8 % (37.5-50.1); Hemoglobin 7.6 g/dL (12.9-16.9)
[2021-12-31] MEDS: Midazolam HCl 50 MG/50 ML IV.SOLN IVC SCH (16:16)
[2021-12-31 16:50] LABS: VBG Ionized Calcium 1.32 mmol/L (1.15-1.35)
[2021-12-31 17:07] LABS: Calcium 9.1 mg/dL (8.6-10.3); Magnesium 2.3 mg/dL (1.6-2.6); Phosphorous 4.5 mg/dL (2.7-4.5); Potassium 3.8 mEq/L (3.5-5.1)
[2021-12-31] MEDS ORDERED: *HR* Midazolam HCl 5 MG/5 ML VIAL IVP ONE ×2 (17:08→17:09)
[2021-12-31] MEDS: Cisatracurium 200 MG in 0.9 % Sodium Chloride 80 ML IVC SCH (17:54)
[2021-12-31] MEDS: levoFLOXacin 750 MG/150 ML 750 MG/150 ML BAG IVPB SCH (19:58)
[2022-01-01] MEDS: Heparin 25,000UNIT/250ML 1/2NS 25,000 UNIT/250 ML IV.SOLN IVC SCH ×3 (01:07→21:40)
[2022-01-01] MEDS: FentaNYL (PF) 2,500 MCG/50 ML IV.SOLN IVC SCH ×3 (01:35→23:00)
[2022-01-01] MEDS: Sodium Bicarbonate 75 MEQ in D5% in Water 1,000 ML IVC SCH ×3 (01:49→19:30)
[2022-01-01] MEDS: Haloperidol Lactate 5 MG/ML VIAL IVP SCH ×3 (03:08→16:43)
[2022-01-01] MEDS: Dexmedetomidine HCl 400 MCG/100 ML MLS IVC SCH ×6 (03:15→21:50)
[2022-01-01] MEDS: Ipratropium/Albuterol Neb 3 ML IH SCH ×6 (03:34→23:17)
[2022-01-01 03:55] LABS: VBG Ionized Calcium 1.29 mmol/L (1.15-1.35)
[2022-01-01 03:56] LABS: Basophils % 0.3 %; Eosinophils # 0.1 K/mcL (0.0-0.6); Eosinophils % 1.4 %; Hematocrit 22.3 % (37.5-50.1); Hemoglobin 6.6 g/dL (12.9-16.9); Immature Granulocytes % 4.1 % (0-4); Lymphocytes # 0.6 K/mcL (0.6-4.6); Mean Corpuscular HGB Conc 29.6 g/dL (31.6-35.5); Mean Corpuscular Hemoglobin 21.5 pg (28.0-33.3); Mean Corpuscular Volume 72.6 fL (83.0-100.0); Monocytes # 0.7 K/mcL (0.0-1.3); Monocytes % 6.7 %; Neutrophils # 8.1 K/mcL (1.6-8.9); Nucleated Red Blood Cells 0.2 /100 WBC (0); Platelet Count 205 K/mcL (140-400); Red Blood Count 3.07 M/mcL (4.19-5.50); Red Cell Distribution Width 24.5 % (11.5-14.5); Segmented Neutrophils % 81.5 %; White Blood Count 9.9 K/mcL (4.3-11.1)
[2022-01-01 04:02] LABS: ABG Base Excess -6 mEq/L (-2 to 3); ABG HCO3 19 mEq/L (21-27); ABG Oxygen Saturation 100 % (95-98); ABG PCO2 32 mmHg (35-45); ABG PH 7.38 pH Units (7.32-7.45); ABG PO2 162 mmHg (85-104); ABG TCO2 20 mEq/L (20-26); Blood Gas VT 500 cc
[2022-01-01 04:16] LABS: Phosphorous 3.8 mg/dL (2.7-4.5); Potassium 3.6 mEq/L (3.5-5.1)
[2022-01-01 04:18] LABS: Platelet Estimate Normal (Normal)
[2022-01-01 04:19] LABS: Anisocytosis 1+ (Not Present); Hypochromasia Present (Not Present); Microcytosis Present (Not Present)
[2022-01-01] MEDS ORDERED: 0.9 % Sodium Chloride 250 ML ONE (05:13)
[2022-01-01] MEDS: Cefepime HCl 2,000 MG in 0.9 % Sodium Chloride 10 ML IVP SCH ×2 (05:22→16:42)
[2022-01-01] MEDS: Pantoprazole 40 MG VIAL IVP SCH ×2 (05:22→16:44)
[2022-01-01] MEDS: Norepinephrine 4 MG/254 ML IV.SOLN IVC SCH ×2 (07:33→19:32)
[2022-01-01] MEDS: Budesonide/Formoterol 160/4.5 1 PUFF INH IH SCH ×2 (07:50→20:30)
[2022-01-01] MEDS: Potassium Chloride 40 MEQ/200 ML BAG IVPB PRN (07:56)
[2022-01-01] MEDS: Chlorhexidine Rinse 15 ML MOUTHWASH MM SCH ×2 (07:57→20:42)
[2022-01-01] MEDS: Lacri-Lube 3.5 GM TUBE BOTH EYES SCH ×2 (07:58→20:42)
[2022-01-01] MEDS: Nystatin POWDER 30 GM BOTTLE TP SCH ×2 (07:59→20:54)
[2022-01-01] MEDS ORDERED: 0.9 % Sodium Chloride 1,000 ML ONE (13:03)
[2022-01-01] MEDS ORDERED: Furosemide 40 MG/4 ML VIAL IVP ONE (13:45)
[2022-01-01 17:14] LABS: Hematocrit 24.7 % (37.5-50.1); Hemoglobin 7.6 g/dL (12.9-16.9)
[2022-01-01] MEDS: Midazolam HCl 50 MG/50 ML IV.SOLN IVC SCH (18:37)
[2022-01-01] MEDS: Cisatracurium 200 MG in 0.9 % Sodium Chloride 80 ML IVC SCH (19:32)
[2022-01-01] MEDS: levoFLOXacin 750 MG/150 ML 750 MG/150 ML BAG IVPB SCH (20:45)
[2022-01-02] MEDS: Dexmedetomidine HCl 400 MCG/100 ML MLS IVC SCH ×6 (01:40→20:35)
[2022-01-02] MEDS: Haloperidol Lactate 5 MG/ML VIAL IVP SCH ×3 (02:28→16:29)
[2022-01-02] MEDS: Sodium Bicarbonate 75 MEQ in D5% in Water 1,000 ML IVC SCH ×2 (03:17→04:38)
[2022-01-02 04:12] LABS: Basophils # 0.1 K/mcL (0.0-0.2); Basophils % 0.5 %; Eosinophils # 0.2 K/mcL (0.0-0.6); Eosinophils % 1.5 %; Hematocrit 22.8 % (37.5-50.1); Immature Granulocytes % 2.2 % (0-4); Lymphocytes # 0.7 K/mcL (0.6-4.6); Lymphocytes % 6.4 %; Mean Corpuscular HGB Conc 30.7 g/dL (31.6-35.5); Mean Corpuscular Hemoglobin 22.1 pg (28.0-33.3); Mean Corpuscular Volume 71.9 fL (83.0-100.0); Mean Platelet Volume 9.7 fL (9.4-12.4); Monocytes # 0.8 K/mcL (0.0-1.3); Monocytes % 7.3 %; Neutrophils # 8.8 K/mcL (1.6-8.9); Nucleated Red Blood Cells 0.2 /100 WBC (0); Platelet Count 181 K/mcL (140-400); Red Blood Count 3.17 M/mcL (4.19-5.50); Red Cell Distribution Width 24.7 % (11.5-14.5); Segmented Neutrophils % 82.1 %; White Blood Count 10.7 K/mcL (4.3-11.1)
[2022-01-02 04:16] LABS: VBG HCO3 22 mEq/L (21-27); VBG Ionized Calcium 1.23 mmol/L (1.15-1.35); VBG PCO2 34 mmHg (41-51); VBG PH 7.42 pH Units (7.32-7.42); VBG PO2 102 mmHg (25-50)
[2022-01-02] MEDS: Cefepime HCl 2,000 MG in 0.9 % Sodium Chloride 10 ML IVP SCH ×2 (04:29→16:29)
[2022-01-02 04:31] LABS: Albumin 2.8 g/dL (3.5-5.7); Albumin/Globulin Ratio 0.8 (1.1-2.2); Bilirubin,Direct 0.3 mg/dL (0.0-0.2); Bilirubin,Indirect 0.6 mg/dL (0.0-1.0); Bilirubin,Total 0.9 mg/dL (0.3-1.0); Calcium 9.1 mg/dL (8.6-10.3); Globulin 3.6 g/dL (2.4-3.5); Magnesium 1.9 mg/dL (1.6-2.6); Phosphorous 2.7 mg/dL (2.7-4.5); Potassium 3.3 mEq/L (3.5-5.1); Total Protein 6.4 g/dL (6.4-8.9)
[2022-01-02] MEDS: Pantoprazole 40 MG VIAL IVP SCH (04:31)
[2022-01-02] MEDS: Ipratropium/Albuterol Neb 3 ML IH SCH ×5 (04:52→19:46)
[2022-01-02] MEDS: Potassium Chloride 40 MEQ/200 ML BAG IVPB PRN (04:56)
[2022-01-02] MEDS: Heparin 25,000UNIT/250ML 1/2NS 25,000 UNIT/250 ML IV.SOLN IVC SCH (05:06)
[2022-01-02 05:07] LABS: Blood Gas VT 500 cc; Mixed Venous Blood pCO2 34 mmHg (44-46); Mixed Venous Blood pH 7.43 pH Units (7.34-7.36); Mixed Venous Blood pO2 40 mmHg (35-45)
[2022-01-02 05:22] LABS: Anisocytosis 3+ (Not Present); Hypochromasia Present (Not Present)
[2022-01-02 06:02] LABS: ABG Base Excess -1 mEq/L (-2 to 3); ABG HCO3 21 mEq/L (21-27); ABG Oxygen Saturation 100 % (95-98); ABG PCO2 26 mmHg (35-45); ABG PH 7.52 pH Units (7.32-7.45); ABG PO2 181 mmHg (85-104); ABG TCO2 22 mEq/L (20-26); Blood Gas Modality ASSIST CONTROL; Blood Gas VT 500 cc
[2022-01-02] MEDS: Budesonide/Formoterol 160/4.5 1 PUFF INH IH SCH ×2 (07:09→19:46)
[2022-01-02] MEDS: Midazolam HCl 50 MG/50 ML IV.SOLN IVC SCH ×4 (08:51→21:23)
[2022-01-02] MEDS: Lacri-Lube 3.5 GM TUBE BOTH EYES SCH ×2 (08:55→20:59)
[2022-01-02] MEDS: Chlorhexidine Rinse 15 ML MOUTHWASH MM SCH ×2 (08:55→20:59)
[2022-01-02] MEDS: Nystatin POWDER 30 GM BOTTLE TP SCH ×2 (08:55→21:17)
[2022-01-02 12:02] LABS: Magnesium 2.2 mg/dL (1.6-2.6); Phosphorous 2.8 mg/dL (2.7-4.5); Potassium 3.3 mEq/L (3.5-5.1)
[2022-01-02] MEDS: FentaNYL (PF) 2,500 MCG/50 ML IV.SOLN IVC SCH ×2 (13:01→23:16)
[2022-01-02] MEDS: Norepinephrine 4 MG/254 ML IV.SOLN IVC SCH (13:03)
[2022-01-02] MEDS ORDERED: Potassium Chloride Elixir 20 MEQ/15 ML UDC GTUBE ONE (14:42)
[2022-01-02 19:18] LABS: Influenza A PCR Negative (Negative); Influenza B PCR Negative (Negative); Resp. Syncytial Virus PCR Negative (Negative)
[2022-01-02 19:22] LABS: SARS-CoV-2 by PCR (In House) Positive (Negative)
[2022-01-02 20:53] VITALS: TEMP 98.8
[2022-01-02] MEDS: Cisatracurium 200 MG in 0.9 % Sodium Chloride 80 ML IVC SCH (20:56)
[2022-01-02] MEDS ORDERED: 0.9 % Sodium Chloride 250 ML ONE (20:59)
[2022-01-02] MEDS ORDERED: Docusate Oral Soln 100 MG/10 ML UDC GTUBE SCH (21:00)
[2022-01-02] MEDS: levoFLOXacin 750 MG/150 ML 750 MG/150 ML BAG IVPB SCH (21:18)
[2022-01-02] MEDS ORDERED: Phenylephrine 20 MG in 0.9 % Sodium Chloride 250 ML IVC SCH (21:30)
[2022-01-02 22:20] VITALS: BP 104/60; PULSE 110; O2SAT 100
[2022-01-03] MEDS ORDERED: Aspirin 81 MG TAB.CHEW PO SCH (09:00)
== END 2022-01-02 23:30 | disposition short-term general hospital (02) | DRG 720 ==
LOC: EMEROOARM 12:51 → 2NENU 12:51 → SUATTDRO 16:40 → 2NNU 17:15 → SUATTDRO 12-23 07:16 → ICNU 12-24 18:33
PROVIDERS: ADMIT Internal Medicine; ATTEND Family Medicine
PROC: ENDOEBX (2022-01-01 16:00)